=== PATIENT | female | born 1995 | race Caucasian/White ===

== ENCOUNTER 2024-02-12 09:43 | Emergency (ER) | payer BC ==
[2024-02-12] MEDS ORDERED: MORPHINE 4 MG/ML SYR ONE (10:07)
[2024-02-12] MEDS ORDERED: ONDANSETRON 4 MG/2 ML VIAL ONE (10:07)
[2024-02-12] MEDS ORDERED: KETOROLAC 30 MG/ML INJ ONE (10:07)
[2024-02-12] MEDS ORDERED: NA CHLORIDE 0.9% 1,000 ML ONE (10:08)
[2024-02-12 10:26] LABS: Absolute Eosinophils 0.4 K/uL (0-0.5); Absolute Lymphocytes (CBC) 2.1 K/uL (0.7-4.9); Absolute Monocytes 0.4 K/uL (0.1-1.3); Basophils % 0.6 % (0-1.3); Eosinophils % 5.6 % (0-4.4); Hematocrit 38.6 % (36.0-45.0); Hemoglobin 12.8 g/dL (12.0-15.0); Lymphocytes % 30.2 % (15.3-44.8); MCH 27.3 pg (27.0-35.0); MCHC 33.1 g/dL (32.0-36.0); MCV 82.5 fL (80-100); MPV 7.5 fL (7.6-11.3); Monocytes % 6.3 % (3.3-12.3); Neutrophils % 57.3 % (41.7-73.7); Platelets 287 thou/uL (152-406); RBC Red Blood Cell Count 4.67 M/uL (3.86-4.86); Red Cell Distribution Width 13.2 % (12.1-15.2)
[2024-02-12 10:33] LABS: Specific Gravity 1.021 (1.005-1.030)
[2024-02-12 10:38] LABS: Specific Gravity 1.022 (1.005-1.030); Sqamous Epithelial <5 /HPF (None Seen); Urine Bacteria None Seen /HPF (<20); Urine Bilirubin NEGATIVE (Negative); Urine Blood 2+ (Negative); Urine Clarity Clear (Clear); Urine Color Light-Yellow (Yellow); Urine Culture Reflex Order NOT NEEDED; Urine Glucose NEGATIVE (Negative); Urine Ketones NEGATIVE (Negative); Urine Microscopic Reflex YN ORDER UMIC; Urine Mucus 1+ /HPF (None Seen); Urine Nitrite NEGATIVE (Negative); Urine Protein NEGATIVE (Negative); Urine RBC >50 /HPF (None Seen); Urine Urobilinogen Normal (Normal); Urine WBC <5 /HPF (<5)
[2024-02-12 10:42] LABS: Anion Gap 6.4 mEq/L (5.0-15.0); Bilirubin Total 0.5 mg/dL (0.2-1.0); Globulin 3.9 g/dL (2.3-3.5); Potassium 3.4 mEq/L (3.5-5.1); Protein, Total 7.9 g/dL (6.4-8.2)
--- NOTE | 2024-02-12 11:00 | RAD REPORT ---
EXAM DESCRIPTION: CT - Abdomen Pelvis Wo Contrast - 02/12/2024 10:46 am CLINICAL HISTORY: FLANK PAIN COMPARISON: No comparisons TECHNIQUE: Thin cut axial CT imaging of the abdomen and pelvis was performed without IV contrast. Mu ltiplanar reformats were generated and reviewed. All CT scans are performed using dose optimization technique as appropriate and may include automated exposure control or mA/KV adjustment according to patient size. FINDINGS: No suspicious findings in the lung bases. The liver, spleen, adrenal glands, and pancreas show no suspicious findings. Gallbladder and biliary tree are also without suspicious finding. Symmetric renal contour, without suspicious parenchymal findings within limits of noncontrast techniq ue. No evidence of radiopaque calculi or hydroureteronephrosis. No dilated bowel loops or bowel wall thickening. Trace layering pelvic fluid on the right, favored to be physiologic. No free air, fluid collections, or inflammatory stranding. No hernia, mass or bulky lymphadenopathy. The urinary bladder is decompressed limiting evaluation. No suspicious bony findings. IMPRESSION: No acute intra-abdominal process. Trace layering pelvic fluid on the right, favored to be physiologic.
[2024-02-12] MEDS ORDERED: ACETAMINOPHEN 325 MG TABLET ONE (11:04)
[2024-02-12] MEDS ORDERED: ACETAMINOPHEN 500 MG TAB ONE (11:09)
--- NOTE | 2024-02-12 11:09 | EDPHYS ---
Physician Documentation [facility] Name: Hernan Marina Age: 28 yrs Sex: Female : 1995 Arrival Date: 02/12/2024 Time: 09:43 Bed 18 Private MD: ED Physician Priyank Alvarado HPI: 02/11 09:57 This 28 yrs old Female presents to ER via Ambulatory with complaints of ec2 Nausea, Back Pain. 09:57 Patient arrives today for evaluation of right flank pain. Patient reports she is ec2 experiencing flank pain along with nausea. Patient reports general fatigue as well as nausea, no vomiting. Denies diarrhea, reports maybe some cloudy appearing urine.. Historical: - Allergies: 09:54 PENICILLINS; hb - Home Meds: 09:54 None [Active]; hb - PMHx: 09:54 None; hb - PSHx: 09:55 Tonsillectomy; hb - Immunization history:: Adult Immunizations up to date. - Infectious Disease History:: Denies. - Social history:: Smoking status: Patient denies any tobacco usage or history of. ROS: 09:57 Constitutional: as per hpi ec2 Exam: 09:57 Constitutional: GEN: NAD Head: atraumatic Eyes: EOMI Ears: External ears are ec2 normal. CV: regular rate LUNGS: no respiratory distress ABD: non-distended, mild right CVA TTP SKIN: no evidence of rashes MSK: no evidence of trauma NEURO: moves all extremities equally Vital Signs: 09:53 BP 123 / 69; Pulse 87; Resp 16; Temp 97.9; Pulse Ox 100% on R/A; Weight 63.5 kg; Height hb 5 ft. 3 in. ; Pain 5/10; 10:57 BP 114 / 65; Pulse 77; Resp 16; Pulse Ox 99% ; ko1 11:15 BP 105 / 65; Pulse 72; Resp 16; Pulse Ox 100% ; ko1 09:53 Body Mass Index 24.80 (63.50 kg, 160.02 cm) hb 09:53 Pain Scale: Adult hb MDM: 09:52 Patient medically screened. ec2 09:57 Data reviewed: vital signs. ED course: Patient arrives today for right flank pain. ec2 Examination remarkable for well-appearing nontoxic vigorous otherwise in no acute distress with a reassuring examination. Will obtain lab workup and imaging. Differential clues processes such as ureteral stone, pyelonephritis.. 10:48 ED course: CBC is reassuring. CMP shows slight hypokalemia with potassium of 3.4. UA is ec2 pertinent for blood, consistent with patient's active menstrual cycle. Otherwise noninfectious appearing. Lipase within normal ranges, negative testing. . 08 09:57 Order name: CBC with Diff; Complete Time: 10:48 ec2 02/11 09:57 Order name: CMP; Complete Time: 10:48 ec2 02/11 09:57 Order name: Lipase; Complete Time: 10:48 ec2 02/11 09:57 Order name: Test, Urine; Complete Time: 10:48 ec2 02/11 09:57 Order name: Urinalysis w/ reflexes; Complete Time: 10:48 ec2 02/11 09:57 Order name: CT Abd/Pelvis - Without Contrast; Complete Time: 11:05 ec2 02/11 09:57 Order name: IV Saline Lock; Complete Time: 10:24 ec2 02/11 09:57 Order name: Labs collected and sent; Complete Time: 10:23 ec2 Administered Medications: 10:24 Drug: NS 0.9% IV 1000 ml IV at 1 bolus Per protocol; 1000 mL bolus Route: IV; Rate: 1 ko1 bolus; Site: left antecubital; 11:17 Follow up: Response: No adverse reaction; IV Status: Completed infusion; IV Intake: ko1 1000ml 10:24 Drug: TORadol - Ketorolac IVP 15 mg IVP once Route: IVP; Site: left antecubital; ko1 10:39 Follow up: Response: No adverse reaction ko1 10:24 Drug: Ondansetron IVP 4 mg IVP once; over 2 minutes Route: IVP; Site: left antecubital; ko1 10:39 Follow up: Response: No adverse reaction ko1 11:09 Drug: Acetaminophen PO 1000 mg PO once Route: PO; ko1 11:25 Follow up: Response: No adverse reaction ko1 11:17 Not Given (Patient Refused): morphineor iv 4 mg IVP once over 4 mins ko1 Disposition Summary: 02/12/24 11:07 Discharge Ordered Notes: Location: Home ec2 Condition: Stable ec2 Diagnosis - Upper abdominal pain, unspecified ec2 Followup: ec2 - With: Private Physician - When: - Reason: Re-evaluation by your physician Discharge Instructions: - Discharge Summary Sheet ec2 - Flank Pain, Adult ec2 Forms: - Medication Reconciliation Form ec2 - Antibiotic Education ec2 - Prescription Opioid Use ec2 - Patient Portal Instructions ec2 - Leadership Thank You Letter ec2 Prescriptions: - Zofran 4 mg Oral Tablet - take 1 tablet ORAL route every 12 hours As needed; 20 tablet; Refills: 0, ec2 Product Selection Permitted Signatures: Dispatcher [employer] EDMichela Tsang RN RN Brissa Santacruz RN RN ko1 Priyank Alvarado MD MD ec2 Corrections: (The following items were deleted from the chart) 09:55 09:54 Allergies: No Known Allergies; hb hb 09:55 09:54 PSHx: None; hb hb
--- NOTE | 2024-02-12 11:09 | ER ---
Nurse's Notes [facility] Name: Hernan Marina Age: 28 yrs Sex: Female : 1995 Arrival Date: 02/12/2024 Time: 09:43 Bed 18 Private MD: Diagnosis: Upper abdominal pain, unspecified Presentation: 02/11 09:53 Chief complaint: Mid back pain, worse on right side x 4 days, dizziness and nausea hb today. Coronavirus screen: At this time, the client does not indicate any symptoms associated with coronavirus-19. Ebola Screen: No symptoms or risks identified at this time. Initial Sepsis Screen: Does the patient meet any 2 criteria? No. Patient's initial sepsis screen is negative. Does the patient have a suspected source of infection? No. Patient's initial sepsis screen is negative. Risk Assessment: Do you want to hurt yourself or someone else? Patient reports no desire to harm self or others. Onset of symptoms was February 09, 2024. 09:53 Method Of Arrival: Ambulatory hb 09:53 Acuity: YUE 3 hb Triage Assessment: 09:55 General: Appears in no apparent distress. uncomfortable, Behavior is calm, cooperative. hb Pain: Pain currently is 5 out of 10 on a pain scale. Neuro: Level of Consciousness is awake, alert, obeys commands, Oriented to person, place, time, situation. Cardiovascular: Patient's skin is warm and dry. Respiratory: Respiratory effort is even, unlabored, Respiratory pattern is regular, symmetrical. GI: Reports nausea. Musculoskeletal: Reports mid back pain. Historical: - Allergies: 09:54 PENICILLINS; hb - Home Meds: 09:54 None [Active]; hb - PMHx: 09:54 None; hb - PSHx: 09:55 Tonsillectomy; hb - Immunization history:: Adult Immunizations up to date. - Infectious Disease History:: Denies. - Social history:: Smoking status: Patient denies any tobacco usage or history of. Screenin:57 [facility] ED Fall Risk Assessment (Adult) History of falling in the last 3 months, ko1 including since admission No falls in past 3 months (0 pts) Confusion or Disorientation No (0 pts) Intoxicated or Sedated No (0 pts) Impaired Gait No (0 pts) Mobility Assist Device Used No (0 pt) Altered Elimination No (0 pt) Score/Fall Risk Level 0 - 2 = Low Risk Oriented to surroundings, Maintained a safe environment, Educated pt \T\ family on fall prevention, incl call for assistance when getting out of bed, Assessed \T\ reinforced patient's understanding of fall precautions, Provided non-skid footwear, Hourly rounding (assess needs \T\ fall precautionary measures) done. Abuse screen: Denies threats or abuse. Denies injuries from another. Nutritional screening: No deficits noted. Tuberculosis screening: No symptoms or risk factors identified. Assessment: 10:00 General: Appears in no apparent distress. uncomfortable, Behavior is calm, cooperative, ko1 appropriate for age. Pain: Complains of pain in back. Neuro: No deficits noted. Cardiovascular: No deficits noted. Respiratory: No deficits noted. GI: Reports nausea. GI: Abdomen is flat, non-distended. : No deficits noted. EENT: No deficits noted. Derm: No deficits noted. Musculoskeletal: No deficits noted. Vital Signs: 09:53 BP 123 / 69; Pulse 87; Resp 16; Temp 97.9; Pulse Ox 100% on R/A; Weight 63.5 kg; Height hb 5 ft. 3 in. ; Pain 5/10; 10:57 BP 114 / 65; Pulse 77; Resp 16; Pulse Ox 99% ; ko1 11:15 BP 105 / 65; Pulse 72; Resp 16; Pulse Ox 100% ; ko1 09:53 Body Mass Index 24.80 (63.50 kg, 160.02 cm) hb 09:53 Pain Scale: Adult hb ED Course: 09:47 Patient arrived in ED. ra3 09:49 Priyank Alvarado MD is Attending Physician. ec2 09:54 Triage completed. hb 09:55 Arm band placed on. hb 09:59 Patient placed in an exam room, on a stretcher. ll1 10:17 Brissa Santacruz, EVANGELIST is Primary Nurse. ko1 10:20 No provider procedures requiring assistance completed. Initial lab(s) drawn, by va, chepe sent to lab. Urine collected: clean catch specimen, clear. Inserted saline lock: 20 gauge in left antecubital area, using aseptic technique. Blood collected. Flushed with 10 mL NS. 10:24 CBC with Diff Sent. ko1 10:24 CMP Sent. ko1 10:24 Lipase Sent. ko1 10:24 Test, Urine Sent. ko1 10:24 Urinalysis w/ reflexes Sent. ko1 10:47 CT Abd/Pelvis - Without Contrast In Process Unspecified. EDMS 10:57 Patient has correct armband on for positive identification. Allergy band placed. Bed in ko1 low position. Call light in reach. Side rails up X 1. Provided Education on: call light, meds. Pulse ox on. NIBP on. Door closed. Noise minimized. Lights dimmed. Warm blanket given. Pillow given. Assisted to bathroom. 11:15 IV discontinued, intact, bleeding controlled, No redness/swelling at site. Pressure ko1 dressing applied. Administered Medications: 10:24 Drug: NS 0.9% IV 1000 ml IV at 1 bolus Per protocol; 1000 mL bolus Route: IV; Rate: 1 ko1 bolus; Site: left antecubital; 11:17 Follow up: Response: No adverse reaction; IV Status: Completed infusion; IV Intake: ko1 1000ml 10:24 Drug: TORadol - Ketorolac IVP 15 mg IVP once Route: IVP; Site: left antecubital; ko1 10:39 Follow up: Response: No adverse reaction ko1 10:24 Drug: Ondansetron IVP 4 mg IVP once; over 2 minutes Route: IVP; Site: left antecubital; ko1 10:39 Follow up: Response: No adverse reaction ko1 11:09 Drug: Acetaminophen PO 1000 mg PO once Route: PO; ko1 11:25 Follow up: Response: No adverse reaction ko1 11:17 Not Given (Patient Refused): morphineor iv 4 mg IVP once over 4 mins ko1 Medication: 10:57 VIS not applicable for this client. ko1 Intake: 11:17 IV: 1000ml; Total: 1000ml. ko1 Outcome: 11:07 Discharge ordered by . ec2 11:25 Discharged to home ambulatory, ko1 11:25 Condition: stable 11:25 Discharge instructions given to patient, Instructed on discharge instructions, follow up and referral plans. medication usage, Demonstrated understanding of instructions, follow-up care, medications, Prescriptions given X 1, 11:26 Patient left the ED. ko1 Signatures: Dispatcher [employer] EDNE Michela Way RN RN hb Lewis, Lynsay, RN RN ll1 Brissa Santacruz RN RN ko1 Priyank Alvarado MD MD ec2 Monique Melendez ra3 Corrections: (The following items were deleted from the chart) 09:55 09:53 Chief complaint: Back pain, worse on right side x 4 days, dizziness and nausea hb today. hb 09:55 09:54 Allergies: No Known Allergies; hb hb 09:55 09:54 PSHx: None; hb hb 10:57 10:00 BP 114 / 65; Pulse 77bpm; Resp 16bpm; Pulse Ox 99%; ko1 ko1
[2024-02-12 14:17] VITALS: TEMP 97.9
[2024-02-12 14:19] VITALS: BP 105/65; O2SAT 100
== END 2024-02-12 11:26 | disposition home or self-care (01) ==
LOC: ER 09:43
DX: R10.11 Right upper quadrant pain (principal); R53.83 Other fatigue
CPT/HCPCS: 96361; 85025; 81001; 36415; 81025; 83690; 80053; 74176; 96375; 96374; 99284; J2405; J7030

== ENCOUNTER 2025-03-29 07:01 | Emergency (ER) | payer BC ==
[2025-03-29] MEDS ORDERED: NA CHLORIDE 0.9% 1,000 ML ONE (07:52)
[2025-03-29 08:09] LABS: Absolute Lymphocytes (CBC) 3.0 K/uL (0.7-4.9); Hematocrit 35.5 % (36.0-45.0); Hemoglobin 12.0 g/dL (12.0-15.0); MCH 26.7 pg (27.0-35.0); MCHC 33.8 g/dL (32.0-36.0); MCV 78.9 fL (80-100); MPV 7.9 fL (7.6-11.3); Nucleated RBC Absolute Count 0.0 (0-0); Nucleated Red Blood Cells % 0.0 % (0-0); RBC Red Blood Cell Count 4.50 M/uL (3.86-4.86); White Blood Count 19.40 thou/uL (4.3-10.9)
[2025-03-29 08:22] LABS: Sqamous Epithelial <5 /HPF (None Seen); Urine Culture Reflex Order NOT NEEDED; Urine Microscopic Reflex YN ORDER UMIC; Urine WBC Clump Rare /HPF (None Seen); Urine Yeast (Budding) Trace /HPF (None Seen)
[2025-03-29 08:23] LABS: Anion Gap 8.1 mEq/L (5.0-15.0); BUN Blood Urea Nitrogen 15.0 mg/dL (7-18); Glucose Level 99.0 mg/dL (74-106); Potassium 3.1 mEq/L (3.5-5.1)
--- NOTE | 2025-03-29 09:10 | RAD REPORT ---
EXAMINATION: ONE VIEW CHEST XR CLINICAL INDICATION: DYSPNEA TECHNIQUE: Frontal chest projection is submitted. Examination is limited by patient positioning and t echnique. COMPARISON: No prior exam. FINDINGS: The lungs are well inflated and clear. The heart is normal in size. No displaced fractures identified . IMPRESSION: No acute intrathoracic abnormalities.
[2025-03-29] MEDS ORDERED: AZITHROMYCIN 250 MG TAB ONE (09:19)
--- NOTE | 2025-03-29 09:25 | ER ---
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 Coronavirus screen: At this time, the client does not indicate any symptoms associated with coronavirus-19. Ebola Screen: No symptoms or risks identified at this time. Initial Sepsis Screen: Does the patient meet any 2 criteria? No. Patient's initial sepsis screen is negative. Does the patient have a suspected source of infection? No. Patient's initial sepsis screen is negative. Risk Assessment: Do you want to hurt yourself or someone else? Patient reports no desire to harm self or others. Onset of symptoms was March 24, 2025. 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 - Infectious Disease History:: Denies. - Social history:: Smoking status: Patient denies any tobacco usage or history of. - Family history:: not pertinent. - Hospitalizations: : No recent hospitalization is reported. Screenin:30 [facility] ED Fall Risk Assessment (Adult) History of falling in the last 3 months, nh2 including since admission No falls in past 3 months (0 pts) Confusion or Disorientation No (0 pts) Intoxicated or Sedated No (0 pts) Impaired Gait No (0 pts) Mobility Assist Device Used No (0 pt) Altered Elimination No (0 pt) Score/Fall Risk Level 0 - 2 = Low Risk Oriented to surroundings, Maintained a safe environment, Educated pt \T\ family on fall prevention, incl call for assistance when getting out of bed, Assessed \T\ reinforced patient's understanding of fall precautions. Abuse screen: Denies threats or abuse. Denies injuries from another. Nutritional screening: No deficits noted. Tuberculosis screening: No symptoms or risk factors identified. Assessment: 07:30 General: Appears uncomfortable, Behavior is calm, cooperative, appropriate for age. nh2 Pain: Denies pain. Neuro: Level of Consciousness is awake, alert, obeys commands, Oriented to person, place, time, situation, Appropriate for age. Cardiovascular: Heart tones S1 S2 Patient's skin is warm and dry. Rhythm is sinus rhythm Parent/caregiver reports patient has had chest pain when coughing. Respiratory: Airway is patent Trachea midline Respiratory effort is even, unlabored, Respiratory pattern is regular, symmetrical, Breath sounds are clear bilaterally. Onset: The symptoms/episode began/occurred 3 days ago, the patient has mild shortness of breath Parent/caregiver reports the patient having shortness of breath at rest on exertion cough that is productive, dry, since 03/26/2025. GI: Abdomen is flat, non-distended, Reports indigestion, nausea, Patient currently denies vomiting. : No signs and/or symptoms were reported regarding the genitourinary system. Denies burning with urination. Derm: Skin is intact, Skin is dry, Skin is pink, warm \T\ dry. Musculoskeletal: Range of motion: intact in all extremities. 07:30 EENT: Reports burning throat that started 3 days agp. nh2 08:30 Reassessment: Patient and/or family updated on plan of care and expected duration. Pain nh2 level reassessed. Patient is alert, oriented x 3, equal unlabored respirations, skin warm/dry/pink. Vital Signs: 07:22 BP 120 / 75; Pulse 87; Resp 16; Temp 98.4; Pulse Ox 100% on R/A; Weight 60.78 kg; iw Height 5 ft. 3 in. ; 08:05 BP 112 / 72; Pulse 73; Resp 18; Pulse Ox 100% on R/A; nh2 09:03 BP 108 / 75; Pulse 77; Resp 18; Pulse Ox 100% on R/A; nh2 10:00 BP 118 / 75; Pulse 79; Resp 18 S; Pulse Ox 100% on R/A; iw 07:22 Body Mass Index 23.74 (60.78 kg, 160.02 cm) iw ED Course: 07:06 Patient arrived in ED. ts1 07:19 Kev Triplett MD is Attending Physician. rn 07:22 Triage completed. iw 07:22 Arm band placed on. iw 07:30 Patient has correct armband on for positive identification. Bed in low position. Call nh2 light in reach. Side rails up X 1. Provided Education on: using call light for assistance. 07:33 Isma Gauthier Jr, RN is Primary Nurse. nh2 07:55 Initial lab(s) drawn, by me, sent to lab. Urine collected: clean catch specimen, clear, nh2 Amount Voided: 120mL. Inserted saline lock: 22 gauge in right antecubital area, using aseptic technique. Blood collected. Flushed with 10 mL NS. 07:57 XRAY Chest (1 view) In Process Unspecified. EDMS 10:00 No provider procedures requiring assistance completed. IV discontinued, intact, iw bleeding controlled, No redness/swelling at site. Pressure dressing applied. Administered Medications: 08:04 Drug: NS 0.9% IV 1000 ml IV at 1000 ml once; to be given as a bolus over 60 minutes nh2 Route: IV; Rate: 1000 ml; Site: right antecubital; 10:01 Follow up: IV Status: Completed infusion iw 09:22 Drug: AZITHromycin PO 500 mg PO once Route: PO; nh2 10:01 Follow up: Response: No adverse reaction iw Medication: 08:05 VIS not applicable for this client. nh2 Outcome: 09:25 Discharge ordered by . rn 10:01 Discharged to home ambulatory, with family, iw 10: Condition: good 10:01 Discharge instructions given to patient, family, Instructed on discharge instructions, follow up and referral plans. medication usage, Demonstrated understanding of instructions, follow-up care, medications, Prescriptions given X 1, 10:02 Patient left the ED. iw Signatures: Dispatcher [employer] EDMS Nilam Fernandez RN RN iw Kev Triplett MD MD rn Simpson, Tanya, PAS PAS ts1 Isma Gauthier Jr, RN RN nh2 Corrections: (The following items were deleted from the chart) 07:50 07:30 Cardiovascular: Heart tones S1 S2 Patient's skin is warm and dry. Rhythm is sinus nh2 rhythm Parent/caregiver reports patient has had chest pain, when coughing nh2 07:30 EENT: Parent/caregiver reports the patient having difficulty swallowing sore nh2 throat. nh2 07:30 EENT: Reports scratchy throat that started 3 days agp. nh2 nh2 07: 07:30 GI: Abdomen is flat, non-distended, Reports nausea, Patient currently denies nh2 vomiting, nh2
--- NOTE | 2025-03-29 09:25 | EDPHYS ---
Physician Documentation [facility] Name: Hernan Marina Age: 29 yrs Sex: Female : 1995 Arrival Date: 03/29/2025 Time: 07:01 Bed 5 Private MD: ED Physician Kev Triplett HPI: 03/29 07:33 This 29 yrs old Female presents to ER via Ambulatory with complaints of Shortness Of rn Breath, Dizziness, Nausea, Cough. 07:33 Patient reports 4 days of cough, congestion, "losing voice", fatigue and dizziness. 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 Saw PCP at the beginning of this illness and had negative COVID/flu/strep testing. Given steroids for possible viral illness. Patient states not feeling better and not feeling worse. Patient states usually steroids helped his symptoms faster. No chest pain. No abdominal pain or vomiting. Denies .. 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 - Infectious Disease History:: Denies. - Social history:: Smoking status: Patient denies any tobacco usage or history of. - Family history:: not pertinent. - Hospitalizations: : No recent hospitalization is reported. ROS: 07:33 Constitutional: Negative for fever, chills, and weight loss, ENT: Positive for rn congestion and altered voice Neck: Negative for injury, pain, and swelling, Cardiovascular: Negative for chest pain, palpitations, and edema, Respiratory: Positive for cough and mild shortness of breath Abdomen/GI: Negative for abdominal pain, nausea, vomiting, diarrhea, and constipation, Back: Negative for injury and pain, : Negative for injury, bleeding, discharge, and swelling, MS/Extremity: Negative for injury and deformity, Skin: Negative for injury, rash, and discoloration, Neuro: Positive for generalized weakness and malaise Exam: 07:33 Constitutional: This is a well developed, well nourished patient who is awake, alert, rn and in no acute distress. Head/Face: Normocephalic, atraumatic. ENT: Dry mucous membranes, uvula not swollen, uvula midline. No stridor Neck: Nontender cervical lymphadenopathy present Cardiovascular: Regular rate and rhythm. No pulse deficits. Respiratory: Clear bilateral breath sounds. No increased work of breathing, no retractions or nasal flaring. Skin: Dry, no cyanosis Neuro: Awake and alert, GCS 15 07:49 ECG was reviewed by the Attending Physician. rn Vital Signs: 07:22 BP 120 / 75; Pulse 87; Resp 16; Temp 98.4; Pulse Ox 100% on R/A; Weight 60.78 kg; iw Height 5 ft. 3 in. ; 08:05 BP 112 / 72; Pulse 73; Resp 18; Pulse Ox 100% on R/A; nh2 09:03 BP 108 / 75; Pulse 77; Resp 18; Pulse Ox 100% on R/A; nh2 10:00 BP 118 / 75; Pulse 79; Resp 18 S; Pulse Ox 100% on R/A; iw 07:22 Body Mass Index 23.74 (60.78 kg, 160.02 cm) iw MDM: 07:19 Medical Screening Exam initiated rn 08:08 Independent interpretation of the following test(s) in the Emergency Department EKG: rn See my EKG interpretation above X-Ray: My interpretation is Chest x-ray images show mild peribronchial cuffing, more prominent on right lung base per my interpretation. 09:03 ED course: Patient with elevated WBC, likely combination of viral infection and the rn fact that she has been on steroids for a few days now.. 09:24 Differential diagnosis: Anemia Anxiety Reaction Bronchitis pneumonia, Pneumothorax. rn Data reviewed: vital signs, nurses notes, lab test result(s), EKG, radiologic studies, plain films, and as a result, I will discharge patient. Care significantly affected by the following chronic conditions: Thyroid disease. Counseling: I had a detailed discussion with the patient and/or guardian regarding the historical points, exam findings, and any diagnostic results supporting the discharge/admit diagnosis, lab results, radiology results, the need for outpatient follow up, to return to the emergency department if symptoms worsen or persist or if there are any questions or concerns that arise at home. Response to treatment: the patient's symptoms have mildly improved after treatment, and as a result, I will discharge patient. Special discussion: I discussed with the patient/guardian in detail that at this point there is no indication for admission to the hospital. It is understood, however, that if the symptoms persist or worsen the patient needs to return immediately for re-evaluation. 03/29 07:33 Order name: Test, Urine; Complete Time: 08: rn 03/29 07:33 Order name: UA Rfx Santos Cult if indicated; Complete Time: 08:25 rn 03/29 07:33 Order name: CBC with Diff; Complete Time: 08: rn 03/29 07:33 Order name: Basic Metabolic Panel; Complete Time: 08: rn 03/29 07:33 Order name: XRAY Chest (1 view); Complete Time: 09:13 rn 03/29 07:33 Order name: EKG; Complete Time: 07:34 rn 03/29 07:33 Order name: IV Start; Complete Time: 08:04 rn 03/29 07:33 Order name: EKG - Nurse/Tech; Complete Time: 07:43 rn EC:49 Rate is 73 beats/min. Rhythm is regular. QRS Brooten is Normal. AR interval is normal. QRS rn interval is normal. QT interval is normal. No Q waves. T waves are Normal. No ST changes noted. Clinical impression: NSR w/ Non-specific ST/T Changes. Interpreted by me. Reviewed by me. Administered Medications: 08:04 Drug: NS 0.9% IV 1000 ml IV at 1000 ml once; to be given as a bolus over 60 minutes nh2 Route: IV; Rate: 1000 ml; Site: right antecubital; 10:01 Follow up: IV Status: Completed infusion iw 09:22 Drug: AZITHromycin PO 500 mg PO once Route: PO; nh2 10:01 Follow up: Response: No adverse reaction iw Disposition Summary: 03/29/25 09:25 Discharge Ordered Notes: Location: Home rn Problem: new rn Symptoms: have improved rn Condition: Stable rn Diagnosis - Cough rn - Dehydration rn - Dizziness and giddiness rn Followup: rn - With: Private Physician - When: As needed - Reason: Recheck today's complaints, Re-evaluation by your physician Discharge Instructions: - Discharge Summary Sheet rn - Dehydration, Adult rn - Dizziness rn - Cough, Adult rn Forms: - Medication Reconciliation Form rn - Antibiotic corn grinder - Prescription Opioid Use rn - Patient Portal Instructions rn - Leadership Thank You Letter rn Prescriptions: - Zithromax Z-Kevin 250 mg Oral Tablet - take 1 tablet ORAL route as directed for 5 days Day 1 - take two (2) tablets rn one time. Day 2, 3, 4 , 5 take one (1) tablet once daily.; 6 tablet; Refills: 0, Product Selection Permitted Signatures: Dispatcher [employer] Nilam Ochoa, RN RN Kev Leigh MD MD rn Hernandez Jr, Noel, RN RN nh2
[2025-03-29 10:06] VITALS: TEMP 98.4; O2SAT 100
[2025-03-29 10:11] VITALS: BP 118/75
== END 2025-03-29 10:02 | disposition home or self-care (01) ==
LOC: ER 07:01
DX: R05.9 Cough, unspecified (principal); E86.0 Dehydration; R42 Dizziness and giddiness; Z88.0 Allergy status to penicillin
CPT/HCPCS: 96361; 93005; 85025; 81001; 80048; 36415; 81025; 71045; 96360; 99284; J7030